=== PATIENT | female | born 1980 | race Asian ===

== ENCOUNTER 2018-04-06 10:46 | Inpatient (IN) | payer BC ==
[~2018-04-06] VITALS: Ht 162.6 cm; Wt 73.2 kg
[2018-05-25] VITALS (19 sets, daily range): BP systolic 77–104; BP diastolic 41–57; PULSE 76–87; TEMP 97.9–98.4
[2018-05-25] MEDS ORDERED: NATURAL IRON65 MG (06:26)
[2018-05-25] MEDS ORDERED: PRENATAL (06:26)
[2018-05-25 07:01] LABS: MEAN CELL VOLUME 95 fl (80.0-100.0); MEAN CORPUSCULAR HEMOGLOBIN 31 pg (27.0-31.0); MEAN CORPUSCULAR HGB CONC 32 g/dl (33.0-37.0); MEAN PLATELET VOLUME 10.4 fl (7.4-10.4); PLATELET COUNT 194 K/mm3 (130-400); REDCELL DISTRIBUTION WIDTH-CV 14.3 % (11.5-14.5)
[2018-05-25 07:07] LABS: HEMATOCRIT 34.1 % (37.0-47.0)
[2018-05-25 07:51] LABS: BAND 20 % (0-10); BASOPHIL 1 % (0-2); LYMPHOCYTE 15 % (20.0-51.0); METAMYELOCYTE 2 % (0-0); MYELOCYTE 2 % (0-0); NEUTROPHILS 58 % (42.0-75.2); PLATELET ESTIMATE NORMAL (NORMAL)
[2018-05-26 02:15] VITALS: BP 92/50; PULSE 77; TEMP 97.5
[2018-05-26 06:50] VITALS: BP 86/53; PULSE 77; TEMP 98.3
[2018-05-26 16:00] VITALS: BP 86/54; PULSE 80; TEMP 98.5
[2018-05-26 20:00] VITALS: BP 87/49; PULSE 78; TEMP 97.8
[2018-05-27 07:21] VITALS: BP 85/53; PULSE 73; TEMP 97.7
[2018-05-27 13:30] VITALS: BP 98/52; PULSE 75
[2018-05-27 19:46] VITALS: BP 93/63; PULSE 63; TEMP 98.4
[2018-05-28 08:45] VITALS: BP 95/58; PULSE 78; TEMP 98.2
[2018-05-28] MEDS ORDERED: IBU600 MG PO (10:05)
[2018-05-28] MEDS ORDERED: PERCOCET 325 MG1 TA2 PO (10:05)
== END 2018-05-28 15:15 | disposition home or self-care (01) | DRG 788 ==
LOC: OB 05-25 05:25 → LDR 05-25 10:46 → OB 05-28 15:15
PROVIDERS: Obstetrics & Gynecology
PROC: 10D00Z1 Extraction of Products of Conception, Low, Open Approach (ICD-10-PCS; principal; 2018-05-25)
DX: O34.211 Maternal care for low transverse scar from previous cesarean delivery (principal); Z3A.39 39 weeks gestation of pregnancy; Z37.0 Single live birth; O99.02 Anemia complicating childbirth
CPT/HCPCS: J0690; J1885; J2175; J2270; J2370; J2405; J2590; J7120